=== PATIENT | female | born 1995 | race Hispanic/Latino ===

== ENCOUNTER 2020-12-22 04:48 | Emergency (ER) | payer MEDICAID ==
--- OUTSIDE RECORDS SUMMARY | 2020-12-22 04:51 | XMS REPORT | Continuity of Care Document ---
:1995 Author Organization [facility] t Address [address] [place] [address] Care Team Providers Name Role Phone Chin Geiger Attending Clinician Problems This patient has no known problems. Allergies, Adverse Reactions, Alerts This patient has no known allergies or adverse reactions. Medications This patient has no known medications. Procedures This patient has no known procedures. Encounters Start End Encounter Admission Attending Care Care Encounter Source Date/Time Date/Time Type Type Clinicians Facility Department ID 2019-10-29 2019-10-29 Telephone [facility] [id number] 00:00:00 00:00:00 Johanna Neely DIP BRAZIER [id number] [facility] [id number] MATERNAL [id number] & CHILD [address] [place] [address] Results This patient has no known results.
[2020-12-22 05:31] LABS: Urine Blood 1+ (Negative); Urine Glucose Negative (Negative); Urine Protein 1+ (Negative); Urine Specific Gravity >=1.030 (1.005-1.030); Urine pH 5.5 (5.0-7.0)
[2020-12-22 05:44] LABS: Urine Specific Gravity/Preg >1.030 (1.005-1.030)
[2020-12-22 05:57] LABS: Absolute Lymphocytes (CBC) 1.8 K/uL (0.7-4.9); Basophils % 0.7 % (0-1.3); Hematocrit 40.2 % (36.0-45.0); Lymphocytes % 19.2 % (15.3-44.8); RBC Red Blood Cell Count 4.56 M/uL (3.86-4.86)
[2020-12-22 06:09] LABS: ALT/SGPT 53 U/L (12-78); AST/SGOT 26 U/L (15-37); Albumin 3.6 g/dL (3.4-5.0); Alkaline Phosphatase 72 U/L (45-117); BUN Blood Urea Nitrogen 12 mg/dL (7-18); Bicarbonate 25 mmol/L (21-32); Bilirubin Direct < 0.1 mg/dL (0-0.2); Bilirubin Total 0.2 mg/dL (0.2-1.0); Glucose Level 93 mg/dL (74-106); Lipase 62 U/L (73-393); Sodium Level 143 mmol/L (136-145)
[2020-12-22] MEDS ORDERED: DICYCLOMINE HCL 10 MG CAP ONE (06:36)
[2020-12-22] MEDS ORDERED: NA CHLORIDE 0.9% 1,000 ML ONE (06:36)
[2020-12-22] MEDS ORDERED: ONDANSETRON 4 MG/2 ML VIAL ONE (06:36)
--- NOTE | 2020-12-22 07:14 | RAD REPORT ---
EXAM DESCRIPTION: CT - Abdomen Pelvis W Contrast - 12/22/2020 6:46 am CLINICAL HISTORY: ABD PAIN COMPARISON: <Comparisons> TECHNIQUE: Biphasic, helical CT imaging of the abdomen and pelvis was performed following 100 ml non -ionic IV contrast. Oral contrast administered. All CT scans are performed using dose optimization technique as appropriate and may include automated exposure control or mA/KV adjustment according to patient size. FINDINGS: No suspicious findings in the lung bases. The liver, spleen, and pancreas show no focal findings. Liver shows a mild diffuse fatty infiltration . No portal vein abnormalities. Gallbladder and biliary tree are also without suspicious finding. Symmetric renal function is seen with no hydronephrosis or suspicious renal mass. No pyelonephritis o r acute parenchymal process. No bladder abnormalities. No adrenal abnormalities. No uterus or ovarian abnormalities. No stomach or small bowel abnormality seen. Appendix is normal. Patient has numerous small mesenteric lymph nodes and several small sub centimeter periaortic lymph nodes. Colon is mostly decompressed wh ich accentuates the wall thickness. There is a trace amount of stranding in the fat adjacent to the l eft-side of the colon. No free air, free fluid or pneumatosis. No hernia, mass or bulky lymphadenopathy. No suspicious bony findings. IMPRESSION: No appendicitis or other surgically emergent abdomen and pelvis finding. Patient has multiple small mesenteric lymph nodes along with trace amounts of stranding adjacent to t he colon. Findings may reflect nonspecific enteritis or mesenteric adenitis. Fatty infiltration of the liver.
--- NOTE | 2020-12-22 07:45 | EDPHYS ---
Physician Documentation [facility] Name: Nikkie Saha Age: 25 yrs Sex: Female : 1995 Arrival Date: 12/22/2020 Time: 04:56 Bed 6 Private MD: ED Physician Dilan Coffman HPI: 12/22 06:10 This 25 yrs old Female presents to ER via Ambulatory with complaints of Fever, cp Diarrhea, Abdominal Cramping, Body ache, brain fog. 06:10 The patient presents with abdominal pain. cp 06:10 Onset: The symptoms/episode began/occurred 4 day(s) ago. Associated signs and symptoms: cp Pertinent positives: diarrhea, nausea, Pertinent negatives: vomiting. The symptoms are described as crampy. Severity of pain: in the emergency department the pain is unchanged despite home interventions. Patient reports no fevers over past 2 days. Denies blood in stools. 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 - Social history:: Smoking status: Patient denies any tobacco usage or history of. ROS: 06:15 Constitutional: Negative for body aches, chills, fever, poor PO intake. cp 06:15 Cardiovascular: Negative for chest pain, palpitations. cp 06:15 Respiratory: Negative for cough, shortness of breath, wheezing. 06:15 Abdomen/GI: Positive for nausea, diarrhea, abdominal cramps, Negative for vomiting, black/tarry stool, rectal bleeding. 06:15 : Negative for urinary symptoms. 06:15 Neuro: Negative for altered mental status, headache, weakness. 06:15 All other systems are negative. Exam: 06:22 Head/Face: Normocephalic, atraumatic. cp 06:22 Constitutional: The patient appears in no acute distress, alert, awake, comfortable, non-toxic, well developed, well nourished. 06:22 Eyes: Periorbital structures: appear normal, Conjunctiva: normal, no exudate, no injection, Sclera: no appreciated abnormality, Lids and lashes: appear normal, bilaterally. 06:22 ENT: External ear(s): are unremarkable, Nose: is normal, Mouth: Lips: moist, Oral mucosa: moist, Posterior pharynx: Airway: no evidence of obstruction, patent. 06:22 Chest/axilla: Inspection: normal. 06:22 Cardiovascular: Rate: normal, Rhythm: regular. 06:22 Respiratory: the patient does not display signs of respiratory distress, Respirations: normal, no use of accessory muscles, no retractions, labored breathing, is not present. 06:22 Abdomen/GI: Inspection: abdomen appears normal, Bowel sounds: active, all quadrants, Palpation: soft, in all quadrants, mild abdominal tenderness, in the right upper quadrant, left upper quadrant and left lower quadrant, rebound tenderness, is not appreciated, voluntary guarding, is not appreciated, involuntary guarding, is not appreciated. 06:22 Back: pain, is absent, ROM is normal. Vital Signs: 05:09 BP 126 / 68; Pulse 73; Resp 16; Temp 97.9; Pulse Ox 97% on R/A; Weight 108.86 kg; em Height 5 ft. 4 in. (162.56 cm); Pain 5/10; 06:45 BP 122 / 61; Pulse 67; Resp 16; Pulse Ox 99% on R/A; ea 05:09 Body Mass Index 41.20 (108.86 kg, 162.56 cm) em MDM: 06:00 Patient medically screened. cp 06:15 Differential diagnosis: viral Infection, bacterial infection, gastroenteritis, cp appendicitis, urinary tract infection, gastritis, colitis, diverticulitis. 07:38 Data reviewed: vital signs, nurses notes, lab test result(s), radiologic studies, CT cp scan. 07:44 Counseling: I had a detailed discussion with the patient and/or guardian regarding: the cp historical points, exam findings, and any diagnostic results supporting the discharge/admit diagnosis, lab results, radiology results, to return to the emergency department if symptoms worsen or persist or if there are any questions or concerns that arise at home. 07:44 Response to treatment: the patient's symptoms have markedly improved after treatment, cp and as a result, I will discharge patient. ED course: VSS. Patient appears non-toxic. Will discharge to home for continued monitoring. 12/22 05:23 Order name: Basic Metabolic Panel mw2 12/22 05:23 Order name: CBC with Diff [facility] 12/22 05:23 Order name: Hepatic Function [facility] 12/22 05:23 Order name: Lipase [facility] 12/22 05:23 Order name: Basic Metabolic Panel; Complete Time: 06:49 EDMS 12/22 06:50 Interpretation: Normal except: CL 113. cp 12/22 05:23 Order name: Liver (Hepatic) Function; Complete Time: 06:49 EDMS 12/22 05:23 Order name: CBC with Automated Diff; Complete Time: 06:06 EDMS 12/22 06:07 Interpretation: Reviewed. cp 12/22 05:24 Order name: Lipase; Complete Time: 06:49 EDMS 12/22 05:31 Order name: Urine Dipstick-Ancillary; Complete Time: 06:06 EDMS 12/22 06:07 Interpretation: Normal except: UBLD 1+; UPROT 1+. 12/22 05:32 Order name: Urine --Ancillary (enter results) [facility] 12/22 05:32 Order name: Urine --Ancillary; Complete Time: 06:06 EDMS 12/22 06:06 Interpretation: Normal except: USPGRP >1.030. 12/22 05:23 Order name: IV Saline Lock; Complete Time: 05:53 mw 12/22 05:23 Order name: Labs collected and sent; Complete Time: 05:53 [facility] 12/22 06:06 Order name: CT Abd/Pelvis - IV Contrast Only; Complete Time: 07:19 12/22 07:20 Order name: PO challenge; Complete Time: 07:46 pkl Administered Medications: 06:18 Drug: NS 0.9% 1000 ml Route: IV; Rate: 1 bolus; Site: right antecubital; em 08:15 Follow up: IV Status: Completed infusion; IV Intake: 1000ml ap3 06:18 Drug: Zofran (Ondansetron) 4 mg Route: IVP; Site: right antecubital; em 06:44 Follow up: Response: No adverse reaction; Marked relief of symptoms; Nausea is decreasedem 08:16 Follow up: Response: No adverse reaction; Nausea is decreased ap3 06:23 Not Given (Physician Discretion): Zofran (Ondansetron) 4 mg PO once em 06:44 Drug: Bentyl (dicyclomine) 20 mg Route: PO; em 08:00 Follow up: Response: No adverse reaction em 08:13 Drug: Cipro (ciprofloxacin) 500 mg Route: PO; ap3 Disposition: 08:00 Chart complete. cp Disposition Summary: 12/22/20 07:44 Discharge Ordered Location: Home cp Problem: new cp Symptoms: have improved cp Condition: Stable cp Diagnosis - Diarrhea, unspecified cp Followup: cp - With: Private Physician - When: 1 - 2 days - Reason: Worsening of condition Discharge Instructions: - Discharge Summary Sheet cp - Food Choices to Help Relieve Diarrhea, Adult cp - Diarrhea, Adult cp Forms: - Medication Reconciliation Form cp - Thank You Letter cp - Antibiotic Education cp - Prescription Opioid Use cp - Work release form eb Prescriptions: - Zofran 4 mg Oral Tablet - take 1 tablet by ORAL route every 12 hours As needed; 20 tablet; Refills: 0, cp Product Selection Permitted - Cipro 500 mg Oral Tablet - take 1 tablet by ORAL route every 12 hours for 7 days; 14 tablet; Refills: 0, cp Product Selection Permitted - dicyclomine 20 mg Oral Tablet - take 1 tablet by ORAL route 4 times per day As needed; 30 tablet; Refills: 0, cp Product Selection Permitted Addendum: 12/24/2020 17:05 Co-signature as Attending Physician, Dilan Coffman MD. m a2 Signatures: Dispatcher [employer] Jaydon Guy MD MD pkl Munoz, Edgar RN RN José Miguel Brown PA PA cp Alzahri, Mohammad, MD MD ma2 Rowan Brower RN RN 3 Nellie Phelps 2
--- NOTE | 2020-12-22 07:45 | ER ---
Nurse's Notes [facility] Name: Nikkie Saha Age: 25 yrs Sex: Female : 1995 Arrival Date: 12/22/2020 Time: 04:56 Bed 6 Private MD: Diagnosis: Diarrhea, unspecified Presentation: 12/22 05:09 Chief complaint: Patient states: N/V/D and fever since Friday, denies cough or em shortness of breath, also reports abdominal pain. Coronavirus screen: Client denies travel out of the [place] in the last 14 days. Ebola Screen: Patient negative for fever greater than or equal to 101.5 degrees Fahrenheit, and additional compatible Ebola Virus Disease symptoms Patient denies exposure to infectious person. Patient denies travel to an Ebola-affected area in the 21 days before illness onset. No symptoms or risks identified at this time. Initial Sepsis Screen: Does the patient meet any 2 criteria? No. Patient's initial sepsis screen is negative. Does the patient have a suspected source of infection? No. Patient's initial sepsis screen is negative. Risk Assessment: Do you want to hurt yourself or someone else? Patient reports no desire to harm self or others. Onset of symptoms was December 22, 2020. 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 - Social history:: Smoking status: Patient denies any tobacco usage or history of. Screenin:11 Abuse screen: Denies threats or abuse. Nutritional screening: No deficits noted. em Tuberculosis screening: No symptoms or risk factors identified. Fall Risk None identified. Assessment: 05:09 General: Appears in no apparent distress. comfortable, Behavior is calm, cooperative, em appropriate for age, Reports fever for > 3 days. Pain: Complains of pain in right upper quadrant and left upper quadrant Pain currently is 5 out of 10 on a pain scale. Neuro: Level of Consciousness is awake, alert, obeys commands, Oriented to person, place, time, situation. Cardiovascular: Capillary refill < 3 seconds Patient's skin is warm and dry. Respiratory: Airway is patent Respiratory effort is even, unlabored, Respiratory pattern is regular, symmetrical. GI: Abdomen is round obese, Reports diarrhea, nausea, vomiting. : Denies burning with urination. Derm: Skin is intact, is healthy with good turgor, Skin is pink, warm \T\ dry. Musculoskeletal: Capillary refill < 3 seconds, Range of motion: intact in all extremities. 06:34 Reassessment: Patient appears in no apparent distress at this time. wheeled to CT via em wheelchair. 07:20 Reassessment: Patient and/or family updated on plan of care and expected duration. Pain ap3 level reassessed. Patient is alert, oriented x 3, equal unlabored respirations, skin warm/dry/pink. Vital Signs: 05:09 BP 126 / 68; Pulse 73; Resp 16; Temp 97.9; Pulse Ox 97% on R/A; Weight 108.86 kg; em Height 5 ft. 4 in. (162.56 cm); Pain 5/10; 06:45 BP 122 / 61; Pulse 67; Resp 16; Pulse Ox 99% on R/A; ea 05:09 Body Mass Index 41.20 (108.86 kg, 162.56 cm) em ED Course: 04:56 Patient arrived in ED. es 05:02 Jimi Dobson, RN is Primary Nurse. em 05:11 Triage completed. em 05:11 Arm band placed on. em 05:11 Patient has correct armband on for positive identification. Bed in low position. Call em light in reach. Adult w/ patient. Pulse ox on. NIBP on. 05:47 Initial lab(s) drawn, by tn, sent to lab. Inserted saline lock: 22 gauge in right em antecubital area, using aseptic technique. Blood collected. 05:59 José Miguel Broussard PA is PHCP. cp 05:59 Jaydon Mooney MD is Attending Physician. cp 06:46 CT Abd/Pelvis - IV Contrast Only In Process Unspecified. EDMS 07:22 Dilan Coffman MD is Attending Physician. cp 08:14 No provider procedures requiring assistance completed. IV discontinued, intact, ap3 bleeding controlled, No redness/swelling at site. Pressure dressing applied. Administered Medications: 06:18 Drug: NS 0.9% 1000 ml Route: IV; Rate: 1 bolus; Site: right antecubital; em 08:15 Follow up: IV Status: Completed infusion; IV Intake: 1000ml ap3 06:18 Drug: Zofran (Ondansetron) 4 mg Route: IVP; Site: right antecubital; em 06:44 Follow up: Response: No adverse reaction; Marked relief of symptoms; Nausea is decreasedem 08:16 Follow up: Response: No adverse reaction; Nausea is decreased ap3 06:23 Not Given (Physician Discretion): Zofran (Ondansetron) 4 mg PO once em 06:44 Drug: Bentyl (dicyclomine) 20 mg Route: PO; em 08:00 Follow up: Response: No adverse reaction em 08:13 Drug: Cipro (ciprofloxacin) 500 mg Route: PO; ap3 Intake: 08:15 IV: 1000ml; Total: 1000ml. ap3 Outcome: 07:44 Discharge ordered by MD. cp 08:14 Discharged to home ambulatory. ap3 08:14 Condition: good 08:14 Discharge instructions given to patient, Instructed on discharge instructions, follow up and referral plans. medication usage, Demonstrated understanding of instructions, follow-up care, medications, Prescriptions given X 3. 08:15 Patient left the ED. ap3 Signatures: Dispatcher [employer] Xiao Mcintyre Edgar, RN José Miguel Malin PA PA cp Antunez, Elena, RN RN ea Prokisch, Amanda, RN RN ap3
[2020-12-22] MEDS ORDERED: CIPROFLOXACIN HCL 500 MG TAB ONE (08:28)
[2020-12-22 08:34] VITALS: TEMP 97.9
[2020-12-22 08:39] VITALS: BP 122/61; O2SAT 99
== END 2020-12-22 08:15 | disposition home or self-care (01) ==
LOC: ER 04:48
DX: R19.7 Diarrhea, unspecified (principal)
CPT/HCPCS: 96361; 85025; 80048; 36415; 81025; 80076; 81003; 83690; 74177; 96374; 99284; Q9967; J7030; J2405

== ENCOUNTER 2023-04-27 16:43 | Emergency (ER) | payer SELFPAY ==
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
[2023-04-27] MEDS ORDERED: KETOROLAC 30 MG/ML INJ ONE (19:01)
[2023-04-27 19:06] LABS: Specific Gravity > 1.030 (1.005-1.030)
[2023-04-27] MEDS ORDERED: LIDOCAINE 4% PATCH ONE (19:06)
[2023-04-27 19:10] LABS: Urine Bacteria None Seen /HPF (<20); Urine Crystals Unidentified Few /HPF (None Seen); Urine Mucus Slight /HPF (None Seen); Urine RBC >50 /HPF (None Seen)
--- NOTE | 2023-04-27 19:59 | ER ---
Nurse's Notes [facility] Name: Nikkie Saha Age: 27 yrs Sex: Female : 1995 Arrival Date: 04/27/2023 Time: 16:43 Bed 11 Private MD: None, None Diagnosis: Low back pain Presentation: 04/27 17:08 Chief complaint: Patient states: LOWER BACK PAIN STARTED YESTERDAY MORNING AFTER db HELPING PAINT. STATES HAS WORSE PAIN WITH STANDING OR AMBULATION. DENIES RECENT INJURY. STATES FEELS LIKE PERIOD CRAMPS. Coronavirus screen: Client denies travel out of the [place] in the last 14 days. At this time, the client does not indicate any symptoms associated with coronavirus-19. Ebola Screen: Patient negative for fever greater than or equal to 101.5 degrees Fahrenheit, and additional compatible Ebola Virus Disease symptoms Patient denies exposure to infectious person. Patient denies travel to an Ebola-affected area in the 21 days before illness onset. No symptoms or risks identified at this time. Initial Sepsis Screen: Does the patient meet any 2 criteria? No. Patient's initial sepsis screen is negative. Does the patient have a suspected source of infection? No. Patient's initial sepsis screen is negative. Risk Assessment: Do you want to hurt yourself or someone else? Patient reports no desire to harm self or others. Onset of symptoms was April 26, 2023. 17:08 Method Of Arrival: Ambulatory db 17:08 Acuity: MARCO 3 db Triage Assessment: 17:10 General: Appears in no apparent distress. uncomfortable, Behavior is calm, cooperative. db Pain: Complains of pain in back. Neuro: Level of Consciousness is awake, alert, obeys commands, Oriented to person, place, time, situation. Respiratory: Airway is patent Respiratory effort is even, unlabored, Respiratory pattern is regular, symmetrical. 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 - Social history:: Smoking status: Patient reports the use of cigarette tobacco products, smokes one-half pack cigarettes per day. Screenin:24 [facility] ED Fall Risk Assessment (Adult) History of falling in the last 3 months, db including since admission No falls in past 3 months (0 pts). [facility] ED Fall Risk Assessment (Adult) Score/Fall Risk Level 0 - 2 = Low Risk Oriented to surroundings, Maintained a safe environment. Abuse screen: Denies threats or abuse. Denies injuries from another. Nutritional screening: No deficits noted. Tuberculosis screening: No symptoms or risk factors identified. Assessment: 18:24 Reassessment: Patient appears in no apparent distress at this time. Patient and/or db family updated on plan of care and expected duration. Pain level reassessed. Patient is alert, oriented x 3, equal unlabored respirations, skin warm/dry/pink. "CRAMPING" LOWER BACK PAIN. General: Appears in no apparent distress. uncomfortable, Behavior is calm, cooperative. Pain: Complains of pain in back. Neuro: Level of Consciousness is awake, alert, obeys commands, Oriented to person, place, time, situation. Respiratory: Airway is patent Respiratory effort is even, unlabored, Respiratory pattern is regular, symmetrical. Vital Signs: 17:08 BP 135 / 61; Pulse 77; Resp 16; Temp 98.7; Pulse Ox 96% ; Weight 111.13 kg; Height 5 db ft. 4 in. ; Pain 8/10; 18:27 BP 125 / 76; Pulse 51; Resp 18; Pulse Ox 100% on R/A; db 20:30 BP 121 / 71; Pulse 55; Resp 18; Pulse Ox 99% ; kb3 17:08 Body Mass Index 42.05 (111.13 kg, 162.56 cm) db 17:08 Pain Scale: Adult db ED Course: 16:48 Patient arrived in ED. as 16:48 None, None is Private Physician. as 17:10 Triage completed. db 17:10 Arm band placed on right wrist. db 18:23 José Miguel Broussard PA is PHCP. cp 18:23 José Miguel Ramos MD is Attending Physician. cp 18:24 Patient has correct armband on for positive identification. db 20:35 Provided Education on: Plan of care. kb3 20:36 No provider procedures requiring assistance completed. Patient did not have IV access kb3 during this emergency room visit. Administered Medications: 18:55 CANCELLED (Physician Discretion): lidocaine 100 mg IVP once cp 18:56 Drug: Ketorolac IM 60 mg IM once; if test negative Route: IM; Site: left db deltoid; 18:56 Drug: Lidoderm Topical Patch 5 % (700 mg/patch) 1 patches Topical once; leave on for 12 db hours; cover most painful area; may cut into smaller pieces Route: Topical; Site: affected area; 20:32 Drug: Acetaminophen PO 1000 mg PO once Route: PO; kb3 Medication: 18:24 VIS not applicable for this client. db Outcome: 19:59 Discharge ordered by MD. cp 20:35 Discharged to home ambulatory, kb3 20:35 Condition: stable 20:35 Discharge instructions given to patient, Instructed on discharge instructions, follow up and referral plans. medication usage, Demonstrated understanding of instructions, follow-up care, medications, Prescriptions given X 2, 20:37 Patient left the ED. kb3 Signatures: Angella Galdamez Corey, PA PA cp Kayli Soriano, RN RN kb3 Sofia Martínez, RN RN db
--- NOTE | 2023-04-27 20:00 | EDPHYS ---
Physician Documentation [facility] Name: Nikkie Saha Age: 27 yrs Sex: Female : 1995 Arrival Date: 04/27/2023 Time: 16:43 Bed 11 Private MD: None, None ED Physician José Miguel Ramos HPI: 04/27 18:33 This 27 yrs old Female presents to ER via Ambulatory with complaints of Low cp Back Pain. 18:33 The patient presents with pain that is acute. The symptoms are located in the low back. cp intermittent down back of legs to knees. 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 Associated signs and symptoms: Pertinent negatives: abdominal pain, chest pain, constipation, dysuria, fever, hematuria, incontinence, numbness, tingling, weakness. Severity of symptoms: in the emergency department the symptoms are unchanged, despite home interventions. 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 - Social history:: Smoking status: Patient reports the use of cigarette tobacco products, smokes one-half pack cigarettes per day. ROS: 18:35 Constitutional: Negative for body aches, chills, fever, poor PO intake, cp 18:35 Eyes: Negative for injury, pain, redness, and discharge, cp 18:35 ENT: Negative for drainage from ear(s), ear pain, sore throat, difficulty swallowing, difficulty handling secretions, 18:35 Cardiovascular: Negative for chest pain, edema, palpitations, 18:35 Respiratory: Negative for cough, shortness of breath, wheezing, 18:35 Abdomen/GI: Negative for abdominal pain, nausea, vomiting, and diarrhea, constipation, bowel incontinence, 18:35 Back: Positive for pain at rest, pain with movement, of the low back area, 18:35 : Negative for urinary symptoms, difficulty urinating, bladder incontinence, 18:35 Neuro: Negative for dizziness, headache, numbness, tingling, weakness, 18:35 All other systems are negative, Exam: 18:40 Constitutional: The patient appears in no acute distress, alert, awake, non-toxic, well cp developed, well nourished, obese, uncomfortable, 18:40 Head/Face: Normocephalic, atraumatic. cp 18:40 Eyes: Periorbital structures: appear normal, Conjunctiva: normal, no exudate, no injection, Sclera: no appreciated abnormality, Lids and lashes: appear normal, bilaterally, 18:40 ENT: External ear(s): are unremarkable, Nose: is normal, Mouth: Lips: moist, Oral mucosa: pink and intact, moist, Posterior pharynx: Airway: no evidence of obstruction, patent, 18:40 Neck: ROM/movement: is normal, is supple, without pain, no range of motions limitations, 18:40 Chest/axilla: Inspection: normal, 18:40 Cardiovascular: Rate: normal, Rhythm: regular, 18:40 Respiratory: the patient does not display signs of respiratory distress, Respirations: normal, no use of accessory muscles, no retractions, labored breathing, is not present, Breath sounds: are clear throughout, no decreased breath sounds, no stridor, no wheezing, 18:40 Abdomen/GI: Inspection: abdomen appears normal, Palpation: abdomen is soft and non-tender, in all quadrants, 18:40 Back: pain, that is moderate, of the low back area, ROM is painful, with all movement, 18:40 Neuro: Motor: moves all fours, strength is normal, Sensation: is normal, Gait: is steady, Deep tendon reflexes are 2+ (normal) in the right patellar, right Achilles, left patellar and left Achilles, Vital Signs: 17:08 BP 135 / 61; Pulse 77; Resp 16; Temp 98.7; Pulse Ox 96% ; Weight 111.13 kg; Height 5 db ft. 4 in. ; Pain 8/10; 18:27 BP 125 / 76; Pulse 51; Resp 18; Pulse Ox 100% on R/A; db 20:30 BP 121 / 71; Pulse 55; Resp 18; Pulse Ox 99% ; kb3 17:08 Body Mass Index 42.05 (111.13 kg, 162.56 cm) db 17:08 Pain Scale: Adult db MDM: 18:23 Patient medically screened. cp 19:58 Data reviewed: vital signs, nurses notes, lab test result(s). cp 19:58 Differential diagnosis: strain, sciatica, Herniated disc UTI. I considered the cp following discharge prescriptions or medication management in the emergency department Medications were administered in the Emergency Department. See MAR. Counseling: I had a detailed discussion with the patient and/or guardian regarding the historical points, exam findings, and any diagnostic results supporting the discharge/admit diagnosis, lab results, the need for outpatient follow up, a family practitioner, to return to the emergency department if symptoms worsen or persist or if there are any questions or concerns that arise at home. Response to treatment: the patient's symptoms have mildly improved after treatment, and as a result, I will discharge patient. 04/27 18: Order name: Urine Microscopic Only; Complete Time: 19:22 cp 04/27 18:28 Order name: PREGU; Complete Time: 19:22 cp 04/27 19:22 Interpretation: Reviewed. cp Administered Medications: 18:55 CANCELLED (Physician Discretion): lidocaine 100 mg IVP once cp 18:56 Drug: Ketorolac IM 60 mg IM once; if test negative Route: IM; Site: left db deltoid; 18:56 Drug: Lidoderm Topical Patch 5 % (700 mg/patch) 1 patches Topical once; leave on for 12 db hours; cover most painful area; may cut into smaller pieces Route: Topical; Site: affected area; 20:32 Drug: Acetaminophen PO 1000 mg PO once Route: PO; kb3 Disposition Summary: 04/27/23 19:59 Discharge Ordered Notes: Location: Home cp Problem: new cp Symptoms: have improved cp Condition: Stable cp Diagnosis - Low back pain cp Followup: cp - With: Private Physician - When: 1 week - Reason: Recheck today's complaints Discharge Instructions: - Discharge Summary Sheet cp - Acute Back Pain, Adult cp - Heat Therapy cp - Back Exercises cp Forms: - Medication Reconciliation Form cp - Thank You Letter cp - Antibiotic Education cp - Prescription Opioid Use cp - Patient Portal Instructions cp - Leadership Thank You Letter cp Prescriptions: - Diclofenac Sodium 75 mg Oral Tablet Sustained Release - take 1 tablet ORAL route 2 times per day; 30 tablet; Refills: 0, Product cp Selection Permitted - Medrol (Edilberto) 4 mg Oral Tablets, Dose Pack - take 1 tablet ORAL route as directed - follow package instructions; 1 packet; cp Refills: 0, Product Selection Permitted - methocarbamol 750 mg Oral tablet - take 1 tablet ORAL route 3 times per day; 30 tablet; Refills: 0, Product cp Selection Permitted Signatures: Dispatcher [employer] EDMS José Miguel Broussard PA PA cp Kayli Soriano RN RN kb3 Sofia Martínez RN RN db Corrections: (The following items were deleted from the chart) 18:55 18:54 Lidocaine IVP 100 mg IVP once ordered. cp cp
[2023-04-27] MEDS ORDERED: ACETAMINOPHEN 500 MG TAB ONE (20:45)
[2023-04-27 20:47] VITALS: TEMP 98.7
[2023-04-27 20:51] VITALS: BP 121/71; O2SAT 99
== END 2023-04-27 20:37 | disposition home or self-care (01) ==
LOC: ER 16:43
DX: M54.50 Low back pain, unspecified (principal)
CPT/HCPCS: 81015; 81025; 96372; 99284; J2001

== ENCOUNTER 2024-09-15 16:54 | Emergency (ER) | payer SELFPAY ==
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
--- NOTE | 2024-09-15 17:54 | EDPHYS ---
Physician Documentation [facility] Name: Nikkie Saha Age: 28 yrs Sex: Female : 1995 Arrival Date: 09/15/2024 Time: 16:54 Bed 19 Private MD: ED Physician Gil Tam HPI: 09/16 00:10 This 28 yrs old Female presents to ER via Ambulatory with complaints of Neck sb4 Pain, Shoulder Pain. 00:11 The patient or guardian complains of decreased range of motion, an injury, pain. The sb4 symptoms are located on the left posterior aspect of neck. Onset: The symptoms/episode began/occurred 4 day(s) ago. Context: The problem was sustained at work, The neck injury/problem resulted from carrying a heavy load. Associated signs and symptoms: Pertinent negatives: headache, bladder incontinence, bowel incontinence, numbness, tingling, The patient denies any alcohol use. The patient is not apparently intoxicated. The pain radiates to the left trapezius. 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 - Infectious Disease History:: Denies. - Social history:: Smoking status: Patient reports the use of cigarette tobacco products, denies chronic smoking, but will smoke occasionally. ROS: 09/16 00:11 Constitutional: Negative for fever, chills, and weight loss, sb4 MS/extremity: Positive for injury or acute deformity, pain, of the left trapezius and left posterior aspect of neck, All other systems are negative, Exam: 00:11 Constitutional: This is a well developed, well nourished patient who is awake, alert, sb4 and in no acute distress. Head/Face: Normocephalic, atraumatic. Eyes: Extra-ocular motions intact. Periorbital areas with no swelling, redness, or edema. ENT: Mucous membranes moist. Respiratory: No increased work of breathing, no retractions or nasal flaring. Skin: Warm, dry with normal turgor. Normal color with no rashes, no lesions, and no evidence of cellulitis. 00:11 Neck: ROM/movement: pain, with any movement, Meningeal signs: are not present, nuchal rigidity, is not appreciated, Vital Signs: 09/15 17:21 BP 135 / 85; Pulse 78; Resp 17; Temp 98.5; Pulse Ox 100% ; Weight 92.53 kg; Height 5 me1 ft. 3 in. ; Pain 9/10; 18:00 BP 140 / 64; Pulse 60; Resp 17; Pulse Ox 98% ; me1 18:20 BP 137 / 64; Pulse 59; Resp 14; Temp 98.4; Pulse Ox 98% ; me1 17:21 Body Mass Index 36.14 (92.53 kg, 160.02 cm) me1 17:21 Pain Scale: Adult me1 MDM: 17:12 Medical Screening Exam initiated sb4 09/16 00:13 Data reviewed: vital signs, nurses notes, and as a result, I will discharge patient. sb4 Counseling: I had a detailed discussion with the patient and/or guardian regarding the historical points, exam findings, and any diagnostic results supporting the discharge/admit diagnosis, the need for outpatient follow up, for definitive care, to return to the emergency department if symptoms worsen or persist or if there are any questions or concerns that arise at home. Administered Medications: 09/15 18:18 Drug: Cyclobenzaprine PO 10 mg PO once Route: PO; me1 18:23 Follow up: Response: No adverse reaction; Pain is decreased me1 18:18 Drug: Dexamethasone IM 10 mg IM once Route: IM; Site: right deltoid; me1 18:23 Follow up: Response: No adverse reaction; Pain is decreased me1 18:18 Drug: Ketorolac IM 30 mg IM once Route: IM; Site: right deltoid; me1 18:23 Follow up: Response: No adverse reaction; Pain is decreased me1 Disposition Summary: 09/15/24 17:54 Discharge Ordered Notes: Location: Home sb4 Problem: an ongoing problem sb4 Symptoms: are unchanged sb4 Condition: Stable sb4 Diagnosis - Strain of muscle, fascia and tendon at neck level, initial encounter sb4 Followup: sb4 - With: Private Physician - When: 1 week - Reason: Recheck today's complaints, Re-evaluation by your physician Discharge Instructions: - Discharge Summary Sheet sb4 - Pinched Nerve sb4 - Acute Torticollis, Adult sb4 Forms: - Work release form sb4 - Patient Portal Instructions sb4 - Leadership Thank You Letter sb4 Prescriptions: - Cyclobenzaprine 10 mg Oral Tablet - take 1 tablet ORAL route every 8 hours As needed; 30 tablet; Refills: 0, sb4 Product Selection Permitted - Diclofenac Sodium 75 mg Oral Tablet Sustained Release - take 1 tablet ORAL route 2 times per day; 30 tablet; Refills: 0, Product sb4 Selection Permitted - Medrol (Edilberto) 4 mg Oral Tablets, Dose Pack - take 1 tablet ORAL route as directed - follow package instructions; 1 packet; sb4 Refills: 0, Product Selection Permitted Signatures: Lidia Moran PA-C PA-C sb4 Amy Nolasco, RN RN me1
--- NOTE | 2024-09-15 17:54 | ER ---
Nurse's Notes [facility] Name: Nikkie Saha Age: 28 yrs Sex: Female : 1995 Arrival Date: 09/15/2024 Time: 16:54 Bed 19 Private MD: Diagnosis: Strain of muscle, fascia and tendon at neck level, initial encounter Presentation: 09/15 17:21 Chief complaint: Patient states: she was lifting something heavy last Friday and felt me1 something pull in her neck. Neck started hurting on Friday and has continued to get worse since. Today pain is 9/10, to left neck, radiates down to left shoulder and left upper back. Coronavirus screen: Vaccine status: Patient reports being unvaccinated. Ebola Screen: No symptoms or risks identified at this time. Initial Sepsis Screen: Does the patient meet any 2 criteria? No. Patient's initial sepsis screen is negative. Does the patient have a suspected source of infection? No. Patient's initial sepsis screen is negative. Risk Assessment: Do you want to hurt yourself or someone else? Patient reports no desire to harm self or others. Onset of symptoms was September 10, 2024. 17:21 Method Of Arrival: Ambulatory ms1 17:21 Acuity: MARCO 3 me1 Triage Assessment: 17:23 General: Appears uncomfortable, well developed, well nourished, Behavior is calm, me1 cooperative, appropriate for age, Reports pain 9/10 to left neck, radiates to left shoulder and left upper back. Pain: Complains of pain in left posterior aspect of neck and left side of neck Pain radiates to back of left arm and left shoulder and left upper back Pain currently is 9 out of 10 on a pain scale. Quality of pain is described as aching, tight Pain began 2-3 days ago. Is continuous. EENT: No signs and/or symptoms were reported regarding the EENT system. Neuro: Level of Consciousness is awake, alert, obeys commands, Oriented to person, place, time, situation, Appropriate for age. Cardiovascular: Patient's skin is warm and dry. Respiratory: Airway is patent Respiratory effort is even, unlabored, Respiratory pattern is regular, symmetrical. GI: No signs and/or symptoms were reported involving the gastrointestinal system. : No signs and/or symptoms were reported regarding the genitourinary system. Derm: Skin is intact, is healthy with good turgor, Skin is pink, warm \T\ dry. Musculoskeletal: Reports pain in left side of neck, left shoulder and left upper back. 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 - Infectious Disease History:: Denies. - Social history:: Smoking status: Patient reports the use of cigarette tobacco products, denies chronic smoking, but will smoke occasionally. Screenin:27 [facility] ED Fall Risk Assessment (Adult) History of falling in the last 3 months, me1 including since admission No falls in past 3 months (0 pts) Confusion or Disorientation No (0 pts) Intoxicated or Sedated No (0 pts) Impaired Gait No (0 pts) Mobility Assist Device Used No (0 pt) Altered Elimination No (0 pt) Score/Fall Risk Level 0 - 2 = Low Risk Maintained a safe environment, Provided non-skid footwear, Hourly rounding (assess needs \T\ fall precautionary measures) done. Abuse screen: Denies threats or abuse. Nutritional screening: No deficits noted. Tuberculosis screening: No symptoms or risk factors identified. Assessment: 17:27 General: See triage assessment. me1 Vital Signs: 17:21 BP 135 / 85; Pulse 78; Resp 17; Temp 98.5; Pulse Ox 100% ; Weight 92.53 kg; Height 5 me1 ft. 3 in. ; Pain 9/10; 18:00 BP 140 / 64; Pulse 60; Resp 17; Pulse Ox 98% ; me1 18:20 BP 137 / 64; Pulse 59; Resp 14; Temp 98.4; Pulse Ox 98% ; me1 17:21 Body Mass Index 36.14 (92.53 kg, 160.02 cm) me1 17:21 Pain Scale: Adult [facility] [place] ED Course: 17:01 Patient arrived in ED. cj3 17:12 Lidia Moran PA-C is PHCP. sb4 17:12 Gil Tam MD is Attending Physician. sb4 17:21 Eddleman, Amy, RN is Primary Nurse. me1 17:23 Triage completed. me1 17:23 Arm band placed on Patient placed in an exam room. me1 17:27 Patient has correct armband on for positive identification. Bed in low position. Call me1 light in reach. Side rails up X2. Provided Education on: POC. Verbalized understanding.. Client placed on continuous cardiac and pulse oximetry monitoring. NIBP monitoring applied. Pulse ox on. NIBP on. 17:27 No provider procedures requiring assistance completed. me1 18:24 Patient did not have IV access during this emergency room visit. me1 Administered Medications: 18:18 Drug: Cyclobenzaprine PO 10 mg PO once Route: PO; me1 18:23 Follow up: Response: No adverse reaction; Pain is decreased me1 18:18 Drug: Dexamethasone IM 10 mg IM once Route: IM; Site: right deltoid; me1 18:23 Follow up: Response: No adverse reaction; Pain is decreased me1 18:18 Drug: Ketorolac IM 30 mg IM once Route: IM; Site: right deltoid; me1 18:23 Follow up: Response: No adverse reaction; Pain is decreased me1 Medication: 17:27 VIS not applicable for this client. me1 Outcome: 17:54 Discharge ordered by MD. sb4 18:24 Discharged to home ambulatory, with friend, me1 18:24 Condition: stable 18:24 Discharge instructions given to patient, Instructed on discharge instructions, follow up and referral plans. medication usage, Demonstrated understanding of instructions, follow-up care, medications, Prescriptions given X 3, 18:24 Patient left the ED. me1 Signatures: Lidia Moran PA-C PA-C sb4 Amy Nolasco, RN RN me1 Sapna Stapleton cj3
[2024-09-15] MEDS ORDERED: dexAMETHasone 10 MG/ML VIAL ONE (18:12)
[2024-09-15] MEDS ORDERED: CYCLOBENZAPRINE 10 MG TAB ONE (18:12)
[2024-09-15] MEDS ORDERED: KETOROLAC 30 MG/ML INJ ONE (18:12)
[2024-09-15 18:52] VITALS: O2SAT 98
[2024-09-15 18:54] VITALS: BP 137/64; TEMP 98.4
== END 2024-09-15 18:24 | disposition home or self-care (01) ==
LOC: ER 16:54
DX: S16.1XXA Strain of muscle, fascia and tendon at neck level, initial encounter (principal); F17.210 Nicotine dependence, cigarettes, uncomplicated
CPT/HCPCS: J1100